=== PATIENT | female | born 2005 | race Caucasian/White ===

== ENCOUNTER 2025-02-16 11:59 | Emergency (ER) | payer OTHER, SELFPAY ==
[2025-02-16 12:06] VITALS: BP 117/75
[2025-02-16 12:29] LABS: % Basophils 0.2 % (0-2); % Immature Granulocytes 0.2 % (0-0.5); % Lymphocytes 11.7 % (20.5-51.1); % Monocytes 7.8 % (1.7-9.3); % Neutrophils 80.1 % (42.2-75.2); Absolute Monocytes 0.7 10^3/uL (0.1-0.6); Absolute Neutrophils 6.7 10^3/uL (1.4-6.5); Hematocrit 40.7 % (37.0-47.0); Mean Corp Hgb Conc. 34.4 g/dL (33.0-37.0); Mean Corpuscular Hgb 31.9 pg (27.0-31.0); Mean Corpuscular Volume 92.7 fL (81.0-99.0); Mean Platelet Volume 9.4 fL (7.4-10.4); Nucleated Red Blood Cells % 0 %; Platelet Count 250 10^3/uL (130-400); Red Blood Cell Count 4.39 10^6/uL (4.20-5.40); Red Cell Dist. Width 12.1 % (11.5-14.5); White Blood Cell Count 8.4 10^3/uL (4.8-10.8)
[2025-02-16 12:49] LABS: ALT (SGPT) 18 U/L (0-35); AST (SGOT) 24 U/L (14-36); Acetaminophen < 10 ug/ml (10-30); Albumin 4.4 g/dl (3.5-5.0); Alkaline Phosphatase 67 U/L (38-126); Blood Urea Nitrogen 9 mg/dl (7-17); Calcium 9.9 mg/dl (8.4-10.2); Carbon Dioxide 24 mmol/L (22-30); Chloride 108 mmol/L (98-107); Glucose 101 mg/dl (70-99); Potassium 4.2 mmol/L (3.5-5.1); Sodium 142 mmol/L (135-145); Total Protein 7.2 g/dl (6.3-8.2); eGFR > 60.00
--- NOTE | 2025-02-16 13:56 | ED.GENMED ---
History of Present Illness
General
Chief Complaint: Overdose Unintentional
Source: patient
Exam Limitations: none
Time Seen by Provider: 02/16/25 13:21
Nursing documentation reviewed up to this point in time: agreed with
History of Present Illness
History of Present Illness:
Patient is a 19-year-old female presenting to the emergency department with concerns of Tylenol overdose. Patient states that she took 4000 mg of Tylenol last night around 6 PM and took another 4000 mg this morning at 4 AM. She was seen at her
dentist yesterday for dental pain secondary to cavities. She is currently being scheduled to have cavities treated however dentist recommended Tylenol/Motrin in the meantime. She believes that she misunderstood the directions for Tylenol.
This morning�she contacted poison control who recommended that she come to the emergency department. She did briefly have an episode of nausea, vomiting although that has since resolved
Patient denies any thoughts of harming herself or others. Patient is adamant that this was unintentional and not an intentional overdose. Patient denies any other drug use.
Patient denies any fever, chills, abdominal pain or significant worsening pain around tooth
Review of Systems
Review of Systems
Allergies reviewed?: Yes
All Other Systems: ROS reviewed and negative except as documented in HPI and ROS
Phy Exam
Physical Exam
Physical Exam:
Vitals: Patient's vital signs are stable. Afebrile
General: Patient is well appearing, no acute distress. Nontoxic
Skin: Warm and dry, no rashes or lesions
Head: Normocephalic, atraumatic
Eyes: Sclera nonicteric. EOMs intact. No nystagmus.
Throat: Dental caries. No evidence of abscess. Protecting airway
Neck: No erythema or warmth of neck. Normal ROM, no cervical spine tenderness, no meningismus
Cardiac: Regular rate and rhythm, no murmurs.
Pulm: Lungs clear bilaterally.
Abdomen: Abdomen soft and nontender. No right upper quadrant tenderness.
Extremities: No evidence of cyanosis or edema
Neuro: AAOx3. Grossly intact.
Psychiatric: Normal affect.
Course
Orders/Labs/Results
Orders:
Orders
02/16/25 12:18
Acetaminophen Urgent
Complete Blood Count/With Diff Urgent
Comprehensive Metabolic Panel Urgent
HCG, Serum Qualitative Screen Urgent
02/16/25 13:34
Add On- LAB Urgent
Tests Added?: serum hcg
02/16/25 13:52
Ketorolac [Toradol] 15 mg IM NOW STA
Abnormal Lab Results
02/16/25
12:18
MCH 31.9 H pg
(27.0-31.0)
Absolute Neuts (auto) 6.7 H 10^3/uL
(1.4-6.5)
Absolute Lymphs (auto) 1.0 L 10^3/uL
(1.2-3.4)
Absolute Monos (auto) 0.7 H 10^3/uL
(0.1-0.6)
Neutrophils % 80.1 H %
(42.2-75.2)
Lymphocytes % 11.7 L %
(20.5-51.1)
Chloride 108 H mmol/L
(98-107)
Glucose 101 H mg/dl
(70-99)
Acetaminophen < 10 L ug/ml
(10-30)
02/16/25 12:18
02/16/25 12:18
Vital Signs
Initial and Last Documented VS:
Initial Vital Signs
Temp Pulse Resp BP Pulse Ox
98.6 F 92 18 117/75 98
02/16/25 12:06 02/16/25 12:06 02/16/25 12:06 02/16/25 12:06 02/16/25 12:06
Last Documented Vital Signs
Temp Pulse Resp BP Pulse Ox
98.6 F 86 20 117/75 99
02/16/25 12:06 02/16/25 14:42 02/16/25 14:42 02/16/25 12:06 02/16/25 14:42
MDM/Problems Addressed
Differential Diagnosis Includes:
Not limited to: Unintentional overdose, tylenol overdose, dental caries, dental abscess, etc
MDM/Problems Addressed:
19-year-old female presents to the emergency department with concerns of ingesting too much Tylenol. No SI or HI. She is adamant that this was unintentional. She did briefly have nausea/vomiting which resolved. Patient reports ingesting 4000 mg at 6
PM and another 4000 mg this morning at 4 AM. Patient hemodynamically stable on arrival. Physical exam as above. Abdomen benign. No jaundice. Basic labs initiated in triage. CBC without clinically significant abnormalities. CMP without clinically
significant abbnormalities. No elevation in LFTs. Tylenol level is undetectable and this was greater than four hours since last injection. Ultimately � this was not a toxic dose of Tylenol. Will treat dental pain with dose of IM toradol. No evidence
of dental abscess/infection on exam. Return precautions discussed. Discussed appropriate dosing of Tylenol/Motrin. She is following with dentist for treatment of caries. Case discussed with the attending physician.
Chronic conditions affecting care:
N/A
Acute Exacerbation and/or Progression of Chronic Illness:
N/A
*Pulse Oximetry
Patient hypoxic: no
*EKG
Interpreted by ED Provider?: NA
*Bond Broker Interpretation
Rate: Bond Broker- N/A
*Critical Care Note
Total Time (30-74mins, 75-104mins- exclusive of procedures): Not Applicable
ED Attending Note
-
Portions of this chart may have been created with voice recognition software.� Occasional wrong word or��sound alike� substitutions may have occurred due to the inherent limitations of voice recognition software.
Discharge Plan
Departure
Patient Disposition: Home (Routine Discharge)
Date of Disposition: 02/16/25
Time of Disposition: 14:28
Patient with high blood pressure during this ER visit?: No
Condition: Good
Covid-19: Not Applicable
Discharge Problem:
Tylenol ingestion, Dental caries
Instructions: Acetaminophen Poisoning (DC)
Prescriptions:
No Action
sertraline 50 mg Tablet
50 mg PO DAILY@1200
drospirenone-ethinyl estradiol [Vestura (28)] 3-0.02 mg Tablet
1 tab PO DAILY@1200
albuterol sulfate [ProAir HFA] 90 mcg/actuation Hfa Aerosol Inhaler
2 puff INHALATION PRN PRN (Reason: asthma)
sertraline 25 mg Tablet
25 mg PO DAILY
ascorbic acid (vitamin C) 300 mg Tablet,Chewable
300 mg PO DAILY
biotin 500 mcg Capsule
500 mcg PO DAILY
omega-3 fatty acids Capsule
1 cap PO DAILY
acetaminophen [acetaminophen] 325 mg tablet
650 mg PO Q6HPRN PRN (Reason: mild pain) Qty: 14 0RF
tramadol 50 mg tablet
25 mg PO Q6HPRN PRN (Reason: severe pain/breakthrough pain) Qty: 8 0RF
ibuprofen 600 mg tablet
600 mg PO Q6H PRN (Reason: pain) Qty: 14 0RF
Activity Restrictions/Additional Instructions:
RETURN TO THE EMERGENCY DEPARTMENT WITH ANY FEVERS, SEVERE ABDOMINAL PAIN, INTRACTABLE NAUSEA/VOMITING, REDNESS OR SWELLING IN MOUTH OR OF NECK, WORSENING CURRENT SYMPTOMS, OR ANY OTHER CONCERNS
-As discussed - you will need to follow-up with a dentist for definitive management of your tooth pain. You were given a dose of Toradol in the emergency department. You should continue to take ibuprofen ( 600mg) every 6 hours as needed for pain.
You can take Tylenol 1000 mg every 6 hours as needed for pain. You can alternate these every 3 hours if needed. Do not exceed 4000 mg of Tylenol per day.
-Wean yourself off of the ibuprofen as soon as your pain is tolerable. This medication, if used long-term, can have negative effects on the kidneys, heart and stomach.
- Follow-up with your dentist and primary care for further evaluation/management as needed.
Monitor your symptoms closely return to the emergency department any acute worsening/new symptoms or any signs of infection
Interventions
Interventions:
*Risk Screen - Suicide Last Done: 02/16/25 12:14
*General Assessment Last Done: 02/16/25 12:14
*Neglect/Abuse Screening Last Done: 02/16/25 12:14
*ED- Fall Risk Assessment Last Done: 02/16/25 14:45
*ED COVID-19 Vaccine History Last Done: 02/16/25 12:14
*Nursing Disposition Last Done: 02/16/25 14:45
ED- Cardiac Assessment Last Done: 02/16/25 14:03
ED- Neurological Assessment Last Done: 02/16/25 14:03
ED-Psychological Assessment Last Done: 02/16/25 14:03
ED- Pulmonary Assessment Last Done: 02/16/25 14:03
Discharge Date and Time
Discharge Date/Time: 02/16/25 14:47
Print Language: [id number]
[2025-02-16] MEDS: TORADOL 15 MG IM (13:58)
[2025-02-16 14:34] LABS: HCG, Serum Qualitative Screen Negative
== END 2025-02-16 14:47 | disposition home or self-care (01) ==
LOC: EMR 11:59
PROVIDERS: Emergency Medicine; EMERGENCY PHYSICIAN Emergency Medicine
DX: T39.1X1A Poisoning by 4-Aminophenol derivatives, accidental (unintentional), initial encounter (principal); R11.2 Nausea with vomiting, unspecified; K02.9 Dental caries, unspecified; J45.909 Unspecified asthma, uncomplicated; K21.9 Gastro-esophageal reflux disease without esophagitis; F41.9 Anxiety disorder, unspecified; F32.A Depression, unspecified; F43.10 Post-traumatic stress disorder, unspecified
CPT/HCPCS: 99284; 96372; 80053; 80143; 84703; 85025